=== PATIENT | female | born 1945 | race Caucasian/White ===

== ENCOUNTER 2017-05-02 19:32 | Observation (INO) | payer OTHER, MEDICARE ==
[~2017-05-02] VITALS: Ht 167.6 cm; Wt 69.8 kg
--- NOTE | ~2017-05-02 | H ---
[facility] [place] [address] HISTORY AND PHYSICAL Name: ROMULO LOGAN Room #: 454-P [facility] M.Obie#: [id number] Admission: 05/02/17 Attend Phys: Daniel Luna MD Discharge: 05/03/17 Date of : 47 Report #: [id number] THIS REPORT FOR: //name// CC: Rodri Luna DATE OF SERVICE: 05/03/2017 CHIEF COMPLAINT: Chest pain. HISTORY OF PRESENT ILLNESS: The patient is a 71-year-old female who states she developed some pains on her right side of her chest into her shoulder area while watching television. It was constant, radiating to her neck and to her arm. It was knife like sharp pain. 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 She also has a history of atrial fibrillation. She is on Eliquis for that. In light of that, she had to stop taking her NSAIDs for arthritis. She does not recall any acute trauma. She does report she has this pain at night off and on for a while. PAST MEDICAL HISTORY: Significant for: 1. Hypertension. 2. Hyperlipidemia. 3. Prior smoker. 4. AFib. MEDICATIONS: Eliquis 5 mg b.i.d., atorvastatin 20 mg a day, losartan 50 mg a day, diltiazem 240 mg a day, vitamin D, vitamin B, and flecainide 50 mg b.i.d. ALLERGIES: PENICILLIN and SULFA. SOCIAL HISTORY: Prior smoker, occasional alcohol. No recreational drugs. She lives independently. REVIEW OF SYSTEMS: CONSTITUTIONAL: No fever or chills. HEENT: No headaches or visual changes. CHEST: Per above. No cough or sputum production. GASTROINTESTINAL: No nausea, vomiting, diarrhea or constipation. GENITOURINARY: No burning or frequency. EXTREMITIES: Right shoulder pain, no swelling. SKIN: No rashes or wounds. NEUROLOGIC: No numbness or weakness. PHYSICAL EXAMINATION: VITAL SIGNS: In the ER, blood pressure 141/68, pulse is 71, respiratory rate is 14. She is afebrile. O2 sat is 98%. [facility] [address] [place] [address] HISTORY AND PHYSICAL Name: ROMULO LOGAN Room #: 454-P [facility]#: [id number] Admission: 05/02/17 Attend Phys: Daniel Luna MD Discharge: 05/03/17 Date of : 47 Report #: [id number] GENERAL: She is awake, alert, in no acute distress, very pleasant female. Her mucous membranes are moist. NECK: Supple, without adenopathy, thyromegaly or bruits. There are no masses. CHEST: Clear to auscultation, is nontender to palpation. CARDIOVASCULAR: Irregular rhythm without murmur. ABDOMEN: Soft, no masses. Bowel sounds are active. EXTREMITIES: The right shoulder does show some mild discomfort with range of motion, but rotator cuff appears intact. Her chest wall and right shoulder area is slightly tender just below the subclavian area. Her pulses are intact on both sides. LABORATORY DATA: Sodium 143, potassium 3.1, chloride 106, bicarbonate 23, BUN 19, creatinine 0.8, glucose 150, calcium 9.6. Magnesium 1.6. Troponin less than 0.04. BNP is 187. WBCs 9.4, hemoglobin 13.8, hematocrit 40.3, platelet count 225, segs 55, lymphs 32 monos 9. Chest x-ray shows no acute process. ASSESSMENT AND PLAN: 1. Chest pain. It actually does not appear cardiac to me. Dr. You has just seen the patient in consultation as well and he agrees. She is already set up for an outpatient nuclear stress test next week, which was scheduled in advance. We are going to go ahead and keep that appointment. I do not think this may well be more musculoskeletal not been on nonsteroidals. We will go ahead and get an MRI while she is here. I expect her discharge home later today pending that result. 2. Hypokalemia. We will replace with p.o. potassium and have her see me as an outpatient. <ELECTRONICALLY SIGNED> By: Daniel Luna MD 05/04/17 0827 [id number] Daniel Luna MD /nt
--- NOTE | ~2017-05-02 | EKG ---
[place] [address] [facility] [place] [address] ELECTROCARDIOGRAM REPORT Name: ROMULO LOGAN Room #: 454-P [facility].#: [id number] Admission: 05/02/17 Attend Phys: Daniel Luna MD Discharge: 05/03/17 Date of : 47 Report #: [id number] THIS REPORT FOR: //name// [facility] ED Test Date: 2017-05-02 Test Time: 19:43:58 Pat Name: ROMULO LOGAN Department: Room: [facility] Gender: F [employer]: WG : 1945 Requested By: Sinan Verdugo Order Number: [id number] MD: Lester Gan Measurements Intervals [place] Rate: 69 P: 62 PA: 165 QRS: -29 QRSD: 84 T: 43 QT: 397 QTc: 426 Interpretive Statements Sinus rhythm Consider left atrial enlargement Probable LVH with secondary repol abnrm Anterior Q waves, possibly due to LVH Compared to ECG 03/15/2014 14:11:09 Left ventricular hypertrophy now present Q waves now present Myocardial infarct finding no longer present Electronically Signed On 05-04-2017 16:02:20 CDT by Lester Gan [email or web address] <ELECTRONICALLY SIGNED> By: Lester Gan MD 05/04/17 160 42 42 Lester Gan MD /EPI
[~2017-05-02 19:32] MED LIST: ALTACE10 M1 PO; ASPIRIN EC81 M1 PO; CARDIZEM CD240 MG PO; CHANTIX1 MG PO; COZAAR 50 MG TA50 M2 PO; FLECAINIDE ACET50 M1 PO; LIPITOR20 MG PO; LISINOPRIL20 MG PO; NORVASC 5 MG TAB5 MG PO; VITAMIN B-12100 MC1 PO; VITAMIN B12-FO1 EAC1 PO; VITAMIN D-32000 UNIT PO; VITAMIN D400 UNI1 PO
[2017-05-02 19:52] VITALS: BP 141/68
[2017-05-02 20:21] LABS: ABSOLUTE NEUTROPHILS 5.2 thou/uL (1.4-8.2); EOSINOPHILS 1.6 % (0.0-3.0); HEMATOCRIT 40.3 % (37.0-47.0); HEMOGLOBIN 13.8 gm/dL (12.0-15.0); LYMPHOCYTES 32.6 % (24.0-44.0); MCH 32.3 pg (26.0-34.0); MCHC 34.2 g/dL (28.0-37.0); MCV 94.3 fL (80.0-100.0); MONOCYTES 9.2 % (1.0-8.0); PLATELET COUNT 225 thou/uL (150-400); POLYS 55.6 % (36.0-66.0); RBC 4.28 mil/uL (4.20-5.00); RDW 13.8 % (10.5-14.5); WBC 9.4 thou/uL (4.0-11.0)
[2017-05-02 20:22] LABS: MANUAL DIFF NO
[2017-05-02 20:28] LABS: ANION GAP 14 mmol/L (7-16); BUN 19 mg/dL (7-18); CALCIUM 9.6 mg/dL (8.5-10.1); CHLORIDE 106 mmol/L (98-107); CO2 23 mmol/L (21-32); CREATININE 0.8 mg/dL (0.6-1.0); GLUCOSE 150 mg/dL (74-106); POTASSIUM 3.1 mmol/L (3.5-5.1); SODIUM 143 mmol/L (136-145)
[2017-05-02 20:40] LABS: NT-PRO BRAIN NAT PEPTIDE 187 pg/mL (<300); TROPONIN-I < 0.04 ng/mL (<0.04-0.07)
[2017-05-02] MEDS ORDERED: ELIQUIS5 MG PO (20:49)
[2017-05-02 23:00] VITALS: BP 142/73
[2017-05-03 03:30] VITALS: BP 140/75
[2017-05-03 10:17] VITALS: BP 159/87
[2017-05-03 13:19] VITALS: BP 150/82
[2017-05-03 15:11] VITALS: BP 150/82
== END 2017-05-03 15:35 | disposition home or self-care (01) ==
LOC: ER 19:32 → EROBS 22:10 → 4W 22:10
PROVIDERS: Nurse Practitioner
DX: R07.9 Chest pain, unspecified (principal); E87.6 Hypokalemia; I10 Essential (primary) hypertension; E78.5 Hyperlipidemia, unspecified; I48.91 Unspecified atrial fibrillation; M25.519 Pain in unspecified shoulder; I82.B21 Chronic embolism and thrombosis of right subclavian vein; Z87.891 Personal history of nicotine dependence; Z79.899 Other long term (current) drug therapy; Z88.0 Allergy status to penicillin; Z88.8 Allergy status to other drugs, medicaments and biological substances

== ENCOUNTER → 2019-06-19 | Outpatient (CLI) | payer OTHER ==
[~2019-06-19] MED LIST changes: +ELIQUIS5 MG PO
== END ==
LOC: MRI 10:18
DX: M47.26 Other spondylosis with radiculopathy, lumbar region (principal); M43.16 Spondylolisthesis, lumbar region; M51.16 Intervertebral disc disorders with radiculopathy, lumbar region; M48.062 Spinal stenosis, lumbar region with neurogenic claudication; M46.06 Spinal enthesopathy, lumbar region; M43.17 Spondylolisthesis, lumbosacral region; M51.27 Other intervertebral disc displacement, lumbosacral region; M51.37 Other intervertebral disc degeneration, lumbosacral region; M12.88 Other specific arthropathies, not elsewhere classified, other specified site; Z88.0 Allergy status to penicillin; Z88.8 Allergy status to other drugs, medicaments and biological substances; Z88.2 Allergy status to sulfonamides

== ENCOUNTER → 2020-07-07 | Outpatient (CLI) | payer OTHER | LOC: SJCVC 14:40 | PROVIDERS: ATTEND Internal Medicine | DX: R94.31 Abnormal electrocardiogram [ECG] [EKG] (principal); I48.92 Unspecified atrial flutter; E78.5 Hyperlipidemia, unspecified; I10 Essential (primary) hypertension; I65.23 Occlusion and stenosis of bilateral carotid arteries; F17.210 Nicotine dependence, cigarettes, uncomplicated; Z79.899 Other long term (current) drug therapy ==

== ENCOUNTER → 2020-12-08 | Outpatient (CLI) | payer OTHER ==
[~2020-12-08] VITALS: Ht 167.6 cm; Wt 72.6 kg
[~2020-12-08] MED LIST changes: +CHOLECALCIFEROL PO; +COZAAR 50 MG TA50 M1 PO; -COZAAR 50 MG TA50 M2 PO; +NEURONTIN300 MG PO; +TRIAMCINOLONE A80 G2 TOP; -VITAMIN B-12100 MC1 PO; +Vitamin B-12 PO
[2020-12-08 13:44] VITALS: BP 108/70
--- NOTE | 2020-12-08 14:09 | NUR ---
Pain Clinic Assessment: 1. History of Osteoarthritis: SPINE LEFT SHOULDER History of Rheumatoid Arthritis: Not Applicable 2. Height: 5 ft. 6 in. 167.6 cm. Weight: 160.0 lb. oz. 72.576 kg. Patient's BMI: 25.8 3. Vital Signs: BP: 108/70 Pulse: 73 Resp: 16 Temp: 02 Sat: 97 ECG Mon: 4. Pain Intensity: 3 5. Fall Risk: Dizziness: N Needs help standing or walking: N Fallen in the last 3 months: N Fall risk comments: 6. Patient on Blood Thinner: ELIQUIS 7. History of Hypertension: Y 8. Opioid Therapy greater than 6 weeks: N Opiate Contract Signed: 9. Risk Assessment Tool Provided: VALERIY 10. Functional Assessment Tool: 11. Recreational Drug Use: Past greater than 3 mos Drug Type: MARIJUANA Tobacco Use: Current Every Day Smoker Tobacco Type: Cigarettes Amount or Packs/day: 1/2 How Many Years: Alcohol Use: Yes Frequency: Daily Quant: 1-2
== END ==
LOC: PAIN 07:04
PROVIDERS: ATTEND Anesthesiology Pain Medicine
DX: M48.02 Spinal stenosis, cervical region (principal); M54.12 Radiculopathy, cervical region; M54.16 Radiculopathy, lumbar region; M48.061 Spinal stenosis, lumbar region without neurogenic claudication; Z79.899 Other long term (current) drug therapy

== ENCOUNTER → 2020-12-15 | Outpatient (CLI) | payer OTHER ==
[~2020-12-15] VITALS: Ht 167.6 cm; Wt 72.6 kg
[2020-12-15 15:03] VITALS: BP 137/79
--- NOTE | 2020-12-15 15:10 | NUR ---
Pain Clinic Assessment: 1. History of Osteoarthritis: SPINE LEFT SHOULDER History of Rheumatoid Arthritis: Not Applicable 2. Height: 5 ft. 6 in. 167.6 cm. Weight: 160.0 lb. oz. 72.576 kg. Patient's BMI: 25.8 3. Vital Signs: BP: 137/79 Pulse: 82 Resp: 16 Temp: 02 Sat: 96 ECG Mon: 4. Pain Intensity: 3 5. Fall Risk: Dizziness: N Needs help standing or walking: N Fallen in the last 3 months: N Fall risk comments: 6. Patient on Blood Thinner: ELIQUIS 7. History of Hypertension: Y 8. Opioid Therapy greater than 6 weeks: N Opiate Contract Signed: 9. Risk Assessment Tool Provided: LOW 10. Functional Assessment Tool: 11. Recreational Drug Use: Past greater than 3 mos Drug Type: Tobacco Use: Current Every Day Smoker Tobacco Type: Cigarettes Amount or Packs/day: 1/2 How Many Years: Alcohol Use: Yes Frequency: Quant:
== END | disposition home or self-care (01) ==
LOC: PAIN 06:55
PROVIDERS: ATTEND Anesthesiology Pain Medicine
DX: M54.16 Radiculopathy, lumbar region (principal); G89.29 Other chronic pain; F17.210 Nicotine dependence, cigarettes, uncomplicated; Z98.890 Other specified postprocedural states; Z79.899 Other long term (current) drug therapy; Z88.0 Allergy status to penicillin; Z88.2 Allergy status to sulfonamides

== ENCOUNTER → 2021-02-02 | Outpatient (CLI) | payer OTHER | LOC: SJCVCIMAG 07:23 | PROVIDERS: ATTEND Internal Medicine | DX: R94.31 Abnormal electrocardiogram [ECG] [EKG] (principal); I48.92 Unspecified atrial flutter; I10 Essential (primary) hypertension; E78.5 Hyperlipidemia, unspecified; I65.23 Occlusion and stenosis of bilateral carotid arteries; I25.10 Atherosclerotic heart disease of native coronary artery without angina pectoris; E78.00 Pure hypercholesterolemia, unspecified; I48.0 Paroxysmal atrial fibrillation; F17.210 Nicotine dependence, cigarettes, uncomplicated; F17.200 Nicotine dependence, unspecified, uncomplicated; Z79.899 Other long term (current) drug therapy; Z72.89 Other problems related to lifestyle; Z88.0 Allergy status to penicillin; Z88.2 Allergy status to sulfonamides; Z88.1 Allergy status to other antibiotic agents ==

== ENCOUNTER → 2021-09-07 | Outpatient (CLI) | payer OTHER | LOC: SJCVC 14:47 | PROVIDERS: ATTEND Internal Medicine | DX: R94.31 Abnormal electrocardiogram [ECG] [EKG] (principal); I48.92 Unspecified atrial flutter; E78.5 Hyperlipidemia, unspecified; I10 Essential (primary) hypertension; I65.23 Occlusion and stenosis of bilateral carotid arteries; I25.10 Atherosclerotic heart disease of native coronary artery without angina pectoris; F17.200 Nicotine dependence, unspecified, uncomplicated; Z72.89 Other problems related to lifestyle; Z79.899 Other long term (current) drug therapy; Z88.2 Allergy status to sulfonamides; Z88.0 Allergy status to penicillin; Z88.8 Allergy status to other drugs, medicaments and biological substances ==